=== PATIENT | female | born 1975 | race American Indian/Alaskan Native ===

== ENCOUNTER 2017-03-06 00:56 | Emergency (ER) | payer SELFPAY ==
[2017-03-06] MEDS ORDERED: PROVENTIL IH ONE ×2 (01:15→01:52)
[2017-03-06] MEDS ORDERED: MAGNESIUM SULFATE 2GM/50ML 2 GM/50 ML BAG IV ONE (01:51)
[2017-03-06] MEDS ORDERED: ATROVENT IH ONE (01:54)
[2017-03-06 02:08] LABS: Eosinophils % (Auto) 4.3 % (0.0-4.3); Hematocrit 39.8 % (30.3-42.9); Hemoglobin 13.8 gm/dl (10.1-14.3); Mean Corpuscular HGB Conc 35 % (30-34); Mean Corpuscular Hemoglobin 34 pg (28-32); Mean Corpuscular Volume 99 fl (79-97); Platelet Count 335 K/mm3 (140-440); Red Blood Count 4.02 M/mm3 (3.65-5.03); White Blood Count 6.9 K/mm3 (4.5-11.0)
[2017-03-06 02:27] LABS: Anion Gap 21 mmol/L; BUN/Creatinine Ratio 15; Blood Urea Nitrogen 9 mg/dL (7-17); Calcium 9.6 mg/dL (8.4-10.2); Carbon Dioxide 22 mmol/L (22-30); Chloride 99.2 mmol/L (98-107); Glucose 87 mg/dL (65-100); Potassium 4.1 mmol/L (3.6-5.0); Sodium 138 mmol/L (137-145)
--- NOTE | 2017-03-06 06:42 | Emergency Department Report ---
ED Asthma HPI - General Chief Complaint: Adult Asthma Stated Complaint: ORTIZ/WHEEZING Time Seen by Provider: 03/06/17 06:37 Source: patient Mode of arrival: Ambulatory Limitations: No Limitations - History of Present Illness Initial Comments: 41 yo female with asthma history and difficulty breathing for 3 days. pt normally on prednisone everyday but has been out for months. - Related Data Home Medications Medication Instructions Recorded Confirmed Last Taken Albuterol Sulfate [Proair Hfa] 04/01/16 03/31/16 Mometasone/Formoterol [Dulera 200 04/01/16 03/31/16 Mcg/5 Mcg Inhaler] Prednisone [Prednisone] 10 mg PO BID 04/01/16 04/01/16 03/31/16 Zolpidem [Ambien] 10 mg PO QHS 04/01/16 04/01/16 03/31/16 Previous Rx's Medication Instructions Recorded Last Taken Type ALBUTEROL NEB's [Proventil 0.083% 2.5 mg IH Q4H PRN #100 vial 04/01/16 Unknown Rx NEBS] Cyclobenzaprine [Flexeril] 10 mg PO BID PRN #16 tablet 04/01/16 Unknown Rx Ibuprofen [Motrin] 600 mg PO Q8H PRN #25 tablet 04/01/16 Unknown Rx Albuterol Sulfate [Ventolin HFA] 2 puff IH Q4H PRN #1 hfa.aer.ad 03/06/17 Unknown Rx Dexamethasone [Decadron Intensol] 30 mg PO ONCE #1 bottle 03/06/17 Unknown Rx Allergies Allergy/AdvReac Type Severity Reaction Status Date / Time No Known Allergies Allergy Verified 03/06/17 01:09 ED Review of Systems ROS: Stated complaint: ORTIZ/WHEEZING Other details as noted in HPI Constitutional: denies: chills, fever Eyes: denies: eye pain, eye discharge, vision change ENT: denies: ear pain, throat pain Respiratory: denies: cough, shortness of breath, wheezing Cardiovascular: denies: chest pain, palpitations Endocrine: no symptoms reported Gastrointestinal: denies: abdominal pain, nausea, diarrhea Genitourinary: denies: urgency, dysuria, discharge Musculoskeletal: denies: back pain, joint swelling, arthralgia Skin: denies: rash, lesions Neurological: denies: headache, weakness, paresthesias Psychiatric: denies: anxiety, depression Hematological/Lymphatic: denies: easy bleeding, easy bruising ED Past Medical Hx - Past Medical History Hx Asthma: Yes Additional medical history: Vaginal delivery 06-03-98 - Surgical History Hx Breast Surgery: Yes (rt sided lumpectomy 2007) - Social History Smoking Status: Never Smoker Substance Use Type: None - Medications Home Medications: Home Medications Medication Instructions Recorded Confirmed Last Taken Type ALBUTEROL NEB's [Proventil 0.083% 2.5 mg IH Q4H PRN #100 vial 04/01/16 Unknown Rx NEBS] Albuterol Sulfate [Proair Hfa] 04/01/16 03/31/16 History Cyclobenzaprine [Flexeril] 10 mg PO BID PRN #16 tablet 04/01/16 Unknown Rx Ibuprofen [Motrin] 600 mg PO Q8H PRN #25 tablet 04/01/16 Unknown Rx Mometasone/Formoterol [Dulera 200 04/01/16 03/31/16 History Mcg/5 Mcg Inhaler] Prednisone [Prednisone] 10 mg PO BID 04/01/16 04/01/16 03/31/16 History Zolpidem [Ambien] 10 mg PO QHS 04/01/16 04/01/16 03/31/16 History Albuterol Sulfate [Ventolin HFA] 2 puff IH Q4H PRN #1 hfa.aer.ad 03/06/17 Unknown Rx Dexamethasone [Decadron Intensol] 30 mg PO ONCE #1 bottle 03/06/17 Unknown Rx ED Physical Exam - General Limitations: No Limitations General appearance: alert, in distress - Head Head exam: Present: atraumatic, normocephalic - Eye Eye exam: Present: normal appearance, EOMI. Absent: scleral icterus, conjunctival injection - ENT ENT exam: Present: normal exam, mucous membranes moist - Neck Neck exam: Present: normal inspection - Respiratory Respiratory exam: Present: wheezes, accessory muscle use - Cardiovascular Cardiovascular Exam: Present: tachycardia, normal heart sounds - GI/Abdominal GI/Abdominal exam: Present: soft, normal bowel sounds. Absent: hyperactive bowel sounds, hypoactive bowel sounds - Rectal Rectal exam: Present: deferred - Extremities Exam Extremities exam: Present: normal inspection, full ROM, normal capillary refill - Back Exam Back exam: Present: normal inspection, full ROM - Psychiatric Psychiatric exam: Present: normal affect, normal mood - Skin Skin exam: Present: warm, normal color ED Course Vital Signs 03/06/17 03/06/17 01:07 02:13 Temperature 98.8 F 97.8 F Pulse Rate 94 H 97 H Respiratory 20 Rate Blood Pressure 116/88 Blood Pressure 119/86 [Left] O2 Sat by Pulse 98 100 Oximetry ED Medical Decision Making - Lab Data Result diagrams: 03/06/17 01:54 03/06/17 01:54 - Medical Decision Making pt has recovered , no wheezing and no respiratory distress at this time . will discharge home Critical care attestation.: If time is entered above; I have spent that time in minutes in the direct care of this critically ill patient, excluding procedure time. ED Disposition Clinical Impression: Asthma attack Qualifiers: Asthma severity: severe Asthma persistence: persistent Qualified Code(s): J45.51 - Severe persistent asthma with (acute) exacerbation Disposition: - TO HOME OR SELFCARE Is pt being admited?: No Does the pt Need Aspirin: No Condition: Stable Instructions: Asthma (ED) Prescriptions: Albuterol Sulfate [Ventolin HFA] 2 puff IH Q4H PRN #1 hfa.aer.ad PRN Reason: Shortness Of Breath Dexamethasone [Decadron Intensol] 30 mg PO ONCE #1 bottle Referrals: PRIMARY CARE, [Primary Care Provider] - 3-5 Days [facility] Named [facility] [Outside] - 3-5 Days Time of Disposition: 06:42
[2017-03-06 07:15] VITALS: BP 118/69
[2017-03-06] MEDS ORDERED: DUONEB *Not for PRN Use IH SCH (08:00)
== END 2017-03-06 06:50 | disposition home or self-care (01) ==
LOC: ED 00:56
DX: J45.909 Unspecified asthma, uncomplicated (principal)
CPT/HCPCS: 36415; 80048; 84703; 85025; 94640; 94644; 96365; 96375; 99283; J2930; J3475